=== PATIENT | male | born 1975 | race Caucasian/White ===

== ENCOUNTER 2017-10-13 13:08 | Emergency (ER) | payer BC, OTHER ==
[2017-10-13] MEDS: LORAZEPAM 2 MG INJ IM (14:15)
[2017-10-13 14:43] LABS: ADD MAN DIFF? NO
[2017-10-13 14:45] LABS: WHITE BLOOD COUNT 13.8 10^3/ul (4.8-10.8)
[2017-10-13 14:45] LABS: BASOPHIL # 0.1 10^3/ul (0.0-0.1); BASOPHILS % 0.5 % (0.0-2.0); EOSINOPHILS % 0.1 % (0.0-7.0); HEMATOCRIT 48.2 % (42.0-52.0); HEMOGLOBIN 16.7 g/dl (14.0-18.0); LYMPHOCYTES # 1.6 10^3/ul (0.8-2.9); LYMPHOCYTES % 11.6 % (15.0-51.0); MEAN CORPUSCULAR HEMOGLOBIN 30.2 pg (29.0-33.0); MEAN CORPUSCULAR HGB CONC 34.6 g/dl (32.0-37.0); MEAN CORPUSCULAR VOLUME 87.2 fl (82.0-101.0); MEAN PLATELET VOLUME 10.4 fl (7.4-10.4); MONOCYTES % 7.3 % (0.0-11.0); NEUTROPHILS % 80.1 % (39.0-77.0); PLATELET COUNT 293 10^3/UL (140-415); RED BLOOD COUNT 5.53 10^6/ul (4.70-6.10); RED CELL DISTRIBUTION WIDTH 13.2 % (11.5-14.5)
[2017-10-13 15:07] LABS: ALANINE AMINOTRANSFERASE 41 IU/L (13-69); ALBUMIN 4.9 g/dl (3.3-4.9); ALBUMIN/GLOBULIN RATIO 1.48; ALKALINE PHOSPHATASE 68 IU/L (42-121); ANION GAP 21 (8-16); ASPARTATE AMINO TRANSFERASE 25 IU/L (15-46); BILIRUBIN,INDIRECT 1.1 mg/dl (0-1.1); BILIRUBIN,TOTAL 1.1 mg/dl (0.2-1.3); BLOOD UREA NITROGEN 16 mg/dl (7-20); CALCIUM 10.3 mg/dl (8.4-10.2); CARBON DIOXIDE 22 mmol/L (21-31); CHLORIDE 107 mmol/L (97-110); CREATININE 1.08 mg/dl (0.61-1.24); GLUCOSE 96 mg/dl (70-220); POTASSIUM 3.7 mmol/L (3.5-5.1); SODIUM 146 mmol/L (135-144); TOTAL PROTEIN 8.2 g/dl (6.1-8.1)
[2017-10-13 15:19] LABS: TROPONIN-I < 0.012 ng/ml (0.00-0.12)
== END 2017-10-13 15:39 | disposition home or self-care (01) ==
LOC: FTE 13:08
DX: F41.9 Anxiety disorder, unspecified (principal); R00.2 Palpitations; R51 Headache
CPT/HCPCS: 70450; 71045; 80053; 84484; 85025; 93005; 96372; 99285-25